=== PATIENT | male | born 1985 | race Caucasian/White ===

== ENCOUNTER 2017-09-02 13:01 | Emergency (ER) | payer OTHER ==
[~2017-09-02] VITALS: Ht 182.9 cm; Wt 80.0 kg
[2017-09-02 13:15] VITALS: BP 135/79; PULSE 85; RESP 16; TEMP 98.2; O2SAT 98
[2017-09-02] MEDS ORDERED: RABIES VACCINE CHICK EMB INJ 2.5 UNITS/ML SYR IM ONE (13:30)
--- NOTE | 2017-09-02 13:35 | PD ---
HPI Chief Complaint: Bite or Sting Time Seen by Provider: 13:28 Travel History International Travel<30 days: No Contact w/Intl Traveler<30days: No Traveled to known affect area: No History of Present Illness HPI 31-year-old male with history of type 1 diabetes presents to the emergency department for his third rabies vaccination. He is visiting from out of town. Patient was bitten by a bat in [place] 1 week ago. He has no symptoms to report at this time. PFSH Past Medical History Diabetes: Yes Social History Tobacco Use: No Allergies-Medications (Allergen,Severity, Reaction): Coded Allergies: Sulfa (Sulfonamide Antibiotics) (Verified Allergy, Unknown, 09/02/17) Physical Exam Narrative GENERAL: Well-nourished, well-developed male patient in no acute distress SKIN: Focused skin assessment warm/dry. Small abrasion to the left forehead. No other erythema or edema HEAD: Normocephalic. EYES: No scleral icterus. No injection or drainage. NECK: Supple, trachea midline. No JVD or lymphadenopathy. CARDIOVASCULAR: Regular rate and rhythm without murmurs, gallops, or rubs. RESPIRATORY: Breath sounds equal bilaterally. No accessory muscle use. Data Data Last Documented VS Vital Signs Date Time Temp Pulse Resp B/P (MAP) Pulse Ox O2 Delivery O2 Flow Rate FiO2 09/02/17 13:15 98.2 85 16 135/79 (97) 98 Orders Orders Rabies Vaccine Chick Emb Inj (Rabavert I (09/02/17 13:30) Ed Discharge Order (09/02/17 13:31) MDM Medical Decision Making Medical Screen Exam Complete: Yes Emergency Medical Condition: Yes Medical Record Reviewed: Yes Differential Diagnosis Normal examination versus regimen compliance versus rabies exposure Narrative Course 31-year-old male presents emergency department for his third rabies vaccination. Patient is here and not at the health department because he has received two RABAVERT vaccines in the health department does not have that one. He has no medical symptoms. He looks well. He will be given his third dose here. Diagnosis Primary Impression: Bat bite of finger Qualified Codes: S61.259S - Open bite of unspecified finger without damage to nail, sequela; W55.81XS - Bitten by other mammals, sequela Referrals: Primary Care Physician Patient Instructions: General Instructions, Rabies Vaccine (By injection) Additional Instructions: Follow-up with a primary care provider Return immediately with acute worsening symptoms Med/Other Pt SpecificInfo: No Change to Meds Disposition: 01 DISCHARGE HOME Condition: Stable Bambi Oliva Sep 02, 2017 13:35
== END 2017-09-02 14:03 | disposition home or self-care (01) ==
LOC: NEPK 13:01
DX: S61.259D Open bite of unspecified finger without damage to nail, subsequent encounter (principal); W55.81XD Bitten by other mammals, subsequent encounter; Z23 Encounter for immunization
CPT/HCPCS: 90471; 90675